=== PATIENT | female | born 1995 | race Caucasian/White ===

== ENCOUNTER → 2016-07-29 | Outpatient (REF) | payer OTHER | END | disposition home or self-care (01) | LOC: M LAB REF 13:12 | PROVIDERS: ATTEND Obstetrics & Gynecology | DX: O36.80X0 Pregnancy with inconclusive fetal viability, not applicable or unspecified (principal); Z36 Encounter for antenatal screening of mother; Z3A.00 Weeks of gestation of pregnancy not specified ==

== ENCOUNTER → 2016-09-01 | Outpatient (REF) | payer OTHER ==
[2016-09-01 18:27] LABS: FREE T4 1.08 NG/DL (0.76-1.46)
== END ==
LOC: M LAB REF 16:49
PROVIDERS: ATTEND Advanced Practice Midwife
DX: Z34.81 Encounter for supervision of other normal pregnancy, first trimester (principal); Z36 Encounter for antenatal screening of mother; Z3A.00 Weeks of gestation of pregnancy not specified

== ENCOUNTER → 2016-10-16 | Outpatient (CLI) | payer OTHER ==
--- NOTE | 2016-10-16 13:51 | REP ---
OB ULTRASOUND: Real-time sonographic evaluation of the gravid uterus is performed. There is a single living intrauterine gestation. The estimated gestational age is 18 weeks 6 days based on LMP with EDC 03/13/2017. Today's measurements indicate appropriate growth. Biometry and Growth: BPD 41 mm = 18 weeks 3 days, 36th percentile HC 163 mm = 19 weeks 0 days, 54th percentile AC 155 mm = 20 weeks 4 days, 87th percentile FL 28 mm = 18 weeks 4 days, 43rd percentile HC/AC ratio 1.05 slightly below the normal range of 1.07 to 1.26. Estimated weight 302 grams, 74th percentile. SEEN/GROSSLY UNREMARKABLE Lateral ventricles Yes Posterior fossa Yes Upper lip Yes Four-chamber heart Yes LVOT Yes RVOT Yes Stomach Yes Cord insertion Yes Three vessel cord Yes Kidneys Yes Bladder Yes Spine No Cervical length: The cervix is closed and measures 3.6 cm in length. heart rate: 153 beats per minute. position: Breech. Placenta: Anterior and grade 0 with no previa or abruption. Amniotic fluid: Within normal limits. Signed by Francisco Hernández MD 10/16/2016 04:53 P
== END ==
LOC: M RAD 11:10
PROVIDERS: ATTEND Obstetrics & Gynecology
DX: O32.1XX0 Maternal care for breech presentation, not applicable or unspecified (principal); Z36 Encounter for antenatal screening of mother; Z3A.18 18 weeks gestation of pregnancy

== ENCOUNTER → 2016-12-27 | Outpatient (CLI) | payer OTHER ==
[2016-12-27 10:52] LABS: THYROXINE (T4) 12.2 UG/DL (4.5-12.0)
== END ==
LOC: M LAB 08:35
PROVIDERS: ATTEND Advanced Practice Midwife
DX: E03.9 Hypothyroidism, unspecified (principal)

== ENCOUNTER → 2016-12-30 | Outpatient (CLI) | payer OTHER ==
--- NOTE | 2017-01-01 06:06 | REP ---
Clinical: Anatomical evaluation. Comparison: 10/16/2016 . Findings: Examination demonstrates a single live intrauterine in cephalic presentation. motion is identified by technologist. Placenta is noted anteriorly and grade II without evidence for placenta previa or abruption. Amniotic fluid volume is normal. Cervix measures 4.0 cm in length and appears closed. No evidence for nuchal cord. Gestational age by first US 29 weeks 4 days with LEON 03/13/2017 . Gestational age by current measurements 30 weeks 1 day with LEON 03/08/2017 . FHR equals 144 beats per minute. Estimated weight 1499 grams ( 51st percentile). Amniotic fluid index equals 15.6 cm (9.1 - 23.3). Anatomical assessment demonstrates normal structures including cranium, choroid plexus, cavum, cerebellum/posterior fossa, lungs, four-chamber heart, diaphragm, stomach, cord insertion/three-vessel cord, kidneys/bladder, spine, and extremities. Impression: 1. Single live intrauterine in cephalic presentation demonstrating appropriate interval growth. 2. In conjunction with prior examination anatomical assessment is complete and normal. Signed by Gustavo Valdez MD 01/01/2017 05:57 A
== END ==
LOC: M LRY 08:33
PROVIDERS: ATTEND Obstetrics & Gynecology
DX: Z34.82 Encounter for supervision of other normal pregnancy, second trimester (principal); Z36 Encounter for antenatal screening of mother; Z3A.30 30 weeks gestation of pregnancy

== ENCOUNTER → 2017-02-09 | Outpatient (REF) | payer OTHER ==
[~2017-02-09] MED LIST: ACET50TA PO; ARMO1TAB PO; IBUP-1114 PO; PRENTAB9 PO; TUMS500C PO
== END ==
LOC: M LAB REF 17:45
PROVIDERS: ATTEND Advanced Practice Midwife
DX: Z34.83 Encounter for supervision of other normal pregnancy, third trimester (principal); Z36 Encounter for antenatal screening of mother; Z3A.00 Weeks of gestation of pregnancy not specified

== ENCOUNTER 2017-03-08 03:08 | Inpatient (IN) | payer OTHER ==
[2017-03-08] VITALS (20 sets, daily range): BP systolic 93–146; BP diastolic 53–78
[~2017-03-08] VITALS: Ht 160 cm; Wt 68.0 kg
[2017-03-08] MEDS ORDERED: ACET50TA PO (03:28)
[2017-03-08] MEDS ORDERED: PRENTAB9 PO (03:28)
[2017-03-08] MEDS ORDERED: TUMS500C PO (03:28)
[2017-03-08] MEDS ORDERED: LACTATED RINGER'S 1000 ML IV STA (04:07)
[2017-03-08] MEDS ORDERED: LR 1,000 ML IV SCH (04:07)
[2017-03-08] MEDS ORDERED: PENICILLIN G POTASSIUM IV 5 MU in D5W MINI-BAG PLUS 100 ML IV STA (04:07)
[2017-03-08 04:33] LABS: MEAN CORPUSCULAR HEMOGLOBIN 30.4 pg (27.0-33.0); MEAN CORPUSCULAR HGB CONC 32.7 g/dl (32.0-36.5); MEAN CORPUSCULAR VOLUME 92.8 fl (80.0-96.0); WHITE BLOOD COUNT 12.6 K/mm3 (4.0-10.0)
[2017-03-08] MEDS ORDERED: FENTANYL 2MCG/ML ROPIVACAINE 0.2% IN 0.9% NACL 200ML IVBAG As Ordered ONE (05:33)
--- NOTE | 2017-03-08 05:36 | HPEPDOC ---
Obstetrical History & Physical General Date of Admission Mar 08, 2017 at 04:08 Primary Care Physician: REESE JEFFRIES CNM History of Present Illness Patient is a 21-year-old female who is a at 40 weeks gestation with an LEON of 03/08/2017 based off of her LMP and consistent with her first trimester ultrasound. She initiated care in her first trimester. Patient's has been complicated by hypothyroidism. She is taking [place] [facility] for her hypothyroidism. She presents to labor and delivery with complaints of contractions and leaking of fluid. Reports active movement. Denies vaginal bleeding. She reports a scant amount of leaking of fluid that started at 2300 on 03/07/2017. Chief Complaint: Contractions, term, Group B Positive Information Provided By: Patient Age: 21 : 2 Term: 1 Pre-term: 0 Abortions: 0 Livin Care Care: Good Care Dating Final EDC: Mar 08, 2017 Final EDC by: LMP LMP: Jun 01, 2016 EGA at Admission: 40 Antepartum Course Height (inches): 63 Pre- weight (lbs.): 130 Admission Weight (lbs.): 154 Change in Weight (lbs.): 24 Past Medical History Past Obstetrical History : Past Obstetrical History: Multigravida Gestation: 40 Type of Delivery: Spontaneous Vaginal Del. Sex of Infant: Female (weighing 7 lbs. 9 oz.) Complications: No FLY TIER History: No pertinent history Past Medical History Medical History Varicella-zoster child and hypothyroidism. Surgical History: Denies/None Family History Significant Family History: Diabetes, Heart disease, Hypertension Social History Marital Status: Family situation: Spouse/partner home Psychosocial History: No pertinent psych hx * Smoker: non-smoker Alcohol: Denies Drugs: denies Abuse Violence Screening Have you been hit/kicked/slapp: No Have you been sexually assault: No Imunizations Tdap status: current Allergies Coded Allergies: No Known Drug Allergy (Verified Allergy, Unknown, 03/08/17) Medications Scheduled Multivitamins/ ( 27-0.8 mg) 1 Tab Tab, 1 TAB PO DAILY Miscellaneous Medications Acetaminophen (Mapap) 500 Mg Tab, 1,000 MG PO Calcium Carbonate (Tums) 500 Mg Chw, 500 MG PO Physical Examination Physical Examination GENERAL: Alert and oriented times three. BREAST: . ABDOMEN: Gravid and non-tender to touch. FETUS: Is vertex (VTX) by sterile vaginal examination (SVE), fetus is vertex ( VTX) by Marcos. HEART RATE: Regular rate and rhythm. LUNGS: Clear to auscultation (CTA). EXTREMITIES: No edema. . Vital Signs/I&O Vital Signs Date Time Temp Pulse Resp B/P (MAP) Pulse Ox O2 Delivery O2 Flow Rate FiO2 03/08/17 03:20 56 17 124/73 (90) Laboratory Data 24H LABS Laboratory Tests 2 03/08/17 04:26: Serology Scanned Report Hepatitis B Testing 03/08/17 04:27: CBC/BMP Laboratory Tests 03/08/17 04:27 Red Blood Count 4.09, Mean Corpuscular Volume 92.8, Mean Corpuscular Hemoglobin 30.4, Mean Corpuscular Hemoglobin Concent 32.7, Red Cell Distribution Width 13.0 Pertinent Laboratoy Data Blood Type: AB- RBC Antibody Screen: Negative HIV: Negative Hepatitis B: Negative Hepatitis C: Negative Rapid Plasma Reagin: Nonreactive Rubella: Immune Chlamydia/Gonorrhea: Negative Group B Streptococcus: Positive Quad Screen Test: Declined Glucose Tolerance Test: 84 Anatomy Ultrasound Normal Anatomy: Yes Placenta Previa: No Vaginal Examination Dilation: 4 cm Effacement: 80+% Station: -2 Cervical Consistency: Soft Cervical Position: Anterior Presentation: Cephalic presentation Position: Vertex (occiput) Assessment Heart Rate (FHR): 120 Variability: Moderate Accelerations: Positive Decelerations: None Tocometer Contractions: Yes Frequency: regular Strength: palpated as moderate Multi-drug resistant Organism: No history of MDRO Assessment/Plan Assessment IUP at 40 weeks gestation Active labor at term Hypothyroidism Positive GBS Plan Admit to labor and delivery. Labs and IV per protocol. Out of bed ad cynthia. Clear liquid diet. Consult epidural per patient's request. Antibiotics for GBS started. Anticipate cervical change and . REESE JEFFRIES CNM Mar 08, 2017 05:36
[2017-03-08] MEDS ORDERED: REFRIGERATOR IV KEYS XX PRN (06:15)
[2017-03-08] MEDS ORDERED: ePHEDrine SULFATE 25 MG/5 ML(5MG/ML) SYRINGE IV PRN (06:15)
[2017-03-08] MEDS ORDERED: NALOXONE INJ 0.4 MG/1 ML VIAL (J2310) IV PRN (06:15)
[2017-03-08] MEDS ORDERED: ONDANSETRON 4MG/2ML VIAL (J2405) IV PRN (06:15)
[2017-03-08] MEDS ORDERED: diphenhydrAMINE INJ 50MG/ML VIAL (J1200) IV PRN (06:15)
[2017-03-08] MEDS ORDERED: EPIDURAL/PCA KEYS XX PRN (06:15)
[2017-03-08] MEDS ORDERED: EPIDURAL COMMENT XX SCH (06:15)
[2017-03-08] MEDS ORDERED: FENTANYL/ROPIVACAINE/NACL BAG 200 ML EPIDURAL SCH (06:15)
[2017-03-08] MEDS ORDERED: LACTATED RINGER'S 1000 ML IV PRN (06:15)
[2017-03-08] MEDS ORDERED: OXYTOCIN 30 UNITS IN 0.9% NaCl 500ML IV BAG (J2590) As Ordered ONE (06:28)
[2017-03-08] MEDS ORDERED: OXYTOCIN DRIP 30 UNITS in APPROPRIATE DILUENT 1 EA IV SCH (07:42)
[2017-03-08] MEDS ORDERED: ANUSOL HC CREAM 30GM TOP PRN (07:45)
[2017-03-08] MEDS ORDERED: MEASLES,MUMPS,RUBELLA VACCINE INJ (MMR-II) (90707) SC SCH (07:45)
[2017-03-08] MEDS ORDERED: DIBUCAINE 1% OINTMENT 30GM TOP PRN (07:45)
[2017-03-08] MEDS ORDERED: RHOGAM 300 MCG (1500 IU) INJ (J2790) IM SCH (07:45)
[2017-03-08] MEDS ORDERED: DOCUSATE SODIUM 100 MG CAP PO PRN (07:45)
[2017-03-08] MEDS ORDERED: METHYLERGONOVINE MALEATE 0.2 MG TAB PO PRN (07:45)
--- NOTE | 2017-03-08 07:57 | DNPDOC ---
[facility] Delivery Note Delivery Note DATE OF DELIVERY: 03/08/2017 at 0651. PROCEDURE: Spontaneous vaginal delivery. Provider: Reese Gonzalez CNM, ADOLFO ANESTHESIA: Epidural. ESTIMATED BLOOD LOSS: 150 mL. DELIVERY SUMMARY: Patient is a 21-year-old female who is now a at 40 weeks gestation. She presented to labor and delivery in active labor with spontaneous ruptured membranes. She reports she spontaneously ruptured at 2330 on 03/07/2017. Her labor began at 0230. She received an epidural for pain management. She progressed to fully dilated at 0630. The patient pushed to a live male in the OA position with restitution to ROT at 0651. A tight nuchal cord was noted and was reduced after anterior shoulder had delivered. The anterior shoulder delivered with ease and the corpus immediately followed. The baby was placed on maternal abdomen active and crying was stimulation. The cord was cut and clamped after pulsation ceased and cut by father of baby. The placenta delivered intact and spontaneously at 0700. Three-vessel cord was noted. Uterine hemostasis achieved by uterine fundal massage and rapid infusion of IV Pitocin. The perineum and vagina were inspected and found to have a perineal abrasion that required no repair. EBL is 150. Apgars 9/10. weight is unknown at this time. Mom plans to breast-feed . Mom and baby are both in stable condition. REESE GONZALEZ CNM Mar 08, 2017 07:57
[2017-03-08] MEDS ORDERED: PENICILLIN G POTASSIUM IV 2.5 MU in D5W 100 ML IV SCH (09:00)
[2017-03-08] MEDS: PRENATAL VITAMINS CHEWABLE TABLET PO SCH (10:20)
[2017-03-08] MEDS: ACETAMINOPHEN 500 MG TAB PO PRN ×2 (12:26→21:36)
[2017-03-08] MEDS: IBUPROFEN 800 MG TAB PO PRN (17:51)
[2017-03-08] MEDS: THYROID 30 MG TAB PO SCH (21:36)
[2017-03-09 06:24] VITALS: BP 108/62
[2017-03-09] MEDS: PRENATAL VITAMINS CHEWABLE TABLET PO SCH (08:19)
[2017-03-09] MEDS: IBUPROFEN 800 MG TAB PO PRN (08:19)
[2017-03-09 18:00] VITALS: BP 117/64
[2017-03-09] MEDS: THYROID 30 MG TAB PO SCH (20:10)
[2017-03-09] MEDS: ACETAMINOPHEN 500 MG TAB PO PRN (20:11)
[2017-03-10] MEDS: IBUPROFEN 800 MG TAB PO PRN (06:34)
[2017-03-10] MEDS: PRENATAL VITAMINS CHEWABLE TABLET PO SCH (07:33)
[2017-03-10] MEDS ORDERED: IBUP-1114 PO (09:25)
[2017-03-10] MEDS ORDERED: ARMO1TAB PO (09:25)
[2017-03-10] MEDS ORDERED: ACET50TA PO (09:25)
== END 2017-03-10 10:30 | disposition home or self-care (01) | DRG 775 ==
LOC: M LDO 03:08 → M LDI 04:08 → M OBS 09:49
PROVIDERS: ADMIT Advanced Practice Midwife; ATTEND Advanced Practice Midwife
PROC: 10E0XZZ Delivery of Products of Conception, External Approach (ICD-10-PCS; principal; 2017-03-08)
DX: O99.284 Endocrine, nutritional and metabolic diseases complicating childbirth (principal); E03.9 Hypothyroidism, unspecified; O99.824 Streptococcus B carrier state complicating childbirth; Z3A.40 40 weeks gestation of pregnancy; O69.2XX0 Labor and delivery complicated by other cord entanglement, with compression, not applicable or unspecified; Z37.0 Single live birth